=== PATIENT | female | born 2000 | race Caucasian/White ===

== ENCOUNTER 2021-05-18 09:13 | Emergency (ER) | payer OTHER ==
[~2021-05-18] VITALS: Ht 157.5 cm; Wt 93.2 kg
[2021-05-18 09:28] VITALS: BP 136/87
[2021-05-18] MEDS ORDERED: diphenhydrAMINE 50 MG/ML VIAL IVP ONE (09:30)
[2021-05-18] MEDS ORDERED: METOCLOPRAMIDE HCL 10 MG/2 ML VIAL. IVP ONE (09:30)
[2021-05-18] MEDS ORDERED: KETOROLAC 30 MG/ML VIAL. IVP ONE (09:30)
[2021-05-18] MEDS ORDERED: IV NORMAL SALINE 1,000ML 1,000 ML IV ONE (09:30)
--- NOTE | 2021-05-18 09:59 | PHYS DOC ---
Past History Alcohol Use: None General Adult EDM: Chief Complaint: SYNCOPE HPI: HPI: 21-year-old female presents with near syncopal episode while she was at work. She developed a headache last night around 10:30 PM. It is a stabbing pain in the occipital region that radiates to behind her eyes. She went to sleep last night thinking the headache would go away. When she woke up today she still had the same headache. She was at work and she started to see stars. She thinks she just fell asleep at her desk. She did not fall out of her chair. She did not fall onto the floor. Her boss saw that she was partially unconscious and was very concerned she should get checked out. Patient denies fever or chills. She does not have a history of headaches. She denies any falls or trauma. Review of Systems: Review of Systems: Constitutional: Denies fever or chills Eyes: Denies change in visual acuity HENT: Denies nasal congestion or sore throat Respiratory: Denies cough or shortness of breath Cardiovascular: Denies chest pain or edema GI: Denies abdominal pain, nausea, vomiting, bloody stools or diarrhea : Denies dysuria Musculoskeletal: Denies back pain or joint pain Integument: Denies rash Neurologic: Near syncope. Denies headache, focal weakness or sensory changes Endocrine: Denies polyuria or polydipsia Lymphatic: Denies swollen glands Psychiatric: Denies depression or anxiety Current Medications: Current Meds: Current Medications Medications (Trade) Dose Ordered Sig/Sully Start Time Stop Time Status Last Admin Dose Admin Diphenhydramine HCl (Benadryl) 25 mg 1X ONCE 05/18/21 09:30 05/18/21 09:32 DC 05/18/21 09:45 25 MG Ketorolac Tromethamine (Toradol 30mg Vial) 30 mg 1X ONCE 05/18/21 09:30 05/18/21 09:32 DC 05/18/21 09:45 30 MG Metoclopramide HCl (Reglan Vial) 10 mg 1X ONCE 05/18/21 09:30 05/18/21 09:32 DC 05/18/21 09:45 10 MG Sodium Chloride 1,000 ml @ 1,000 mls/hr 1X ONCE 05/18/21 09:30 05/18/21 10:29 05/18/21 09:39 1,000 MLS/HR Allergies: Allergies: Allergies Coded Allergies Type Severity Reaction Last Updated Verified No Known Drug Allergies 05/18/21 No Physical Exam: PE: Constitutional: Well developed, well nourished, no acute distress, non-toxic appearance. [] HENT: Normocephalic, atraumatic, bilateral external ears normal, oropharynx moist, no oral exudates, nose normal. [] Eyes: PERRLA, EOMI, conjunctiva normal, no discharge. [] Neck: Normal range of motion, no tenderness, supple, no stridor. [] Cardiovascular: Heart rate regular rhythm, no murmur [] Lungs & Thorax: Bilateral breath sounds clear to auscultation [] Abdomen: Bowel sounds normal, soft, no tenderness, no masses, no pulsatile masses. [] Skin: Warm, dry, no erythema, no rash. [] Back: No tenderness, no CVA tenderness. [] Extremities: No tenderness, no cyanosis, no clubbing, ROM intact, no edema. [] Neurologic: Alert and oriented X 3, normal motor function, normal sensory function, no focal deficits noted. [] Psychologic: Affect normal, judgement normal, mood normal. [] Current Patient Data: Labs: Laboratory Tests Test 05/18/21 09:52 POC Urine HCG, Qualitative hcg negative (Negative) EKG: EKG: [] Radiology/Procedures: Radiology/Procedures: [] Heart Score: C/O Chest Pain: N/A Risk Factors: Risk Factors: DM, Current or recent (<one month) smoker, HTN, HLP, family history of CAD, obesity. Risk Scores: Score 0 - 3: 2.5% MACE over next 6 weeks - Discharge Home Score 4 - 6: 20.3% MACE over next 6 weeks - Admit for Clinical Observation Score 7 - 10: 72.7% MACE over next 6 weeks - Early Invasive Strategies Course & Med Decision Making: Course & Med Decision Making Pertinent Labs and Imaging studies reviewed. (See chart for details) The patient's labs are unremarkable. Her urinalysis is negative for infection. She is not . For her headache I have given her 1 L normal saline, 25 mg of Benadryl, 10 mg Reglan, 30 mg of Toradol. The patient's headache was partially improved so on an abundance of caution I ordered a head CT since the patient does not have a history of headaches. His CT is negative for acute findings. I have added 4 mg of Decadron IV. Patient should continue to improve after going home. She is stable for discharge at this time. [] Dragon Disclaimer: Dragon Disclaimer: This electronic medical record was generated, in whole or in part, using a voice recognition dictation system. Departure Departure: Impression: Primary Impression: Headache Qualified Codes: R51.9 - Headache, unspecified Additional Impression: Near syncope Disposition: HOME / SELF CARE / HOMELESS Condition: STABLE Referrals: PCP,NO (PCP) Patient Instructions: General Headache Without Cause, [id number], Near-Sy ncope, [id number] ITZEL VELIZ DO May 18, 2021 09:59
[2021-05-18 10:01] LABS: BASO # 0.1 x10^3/uL (0.0-0.2); BASO % 1 % (0-3); EOS # 0.6 x10^3/uL (0.0-0.7); EOS % 6 % (0-3); HEMATOCRIT 39.6 % (36.0-47.0); HEMOGLOBIN 13.4 g/dL (12.0-15.5); LYMPH % 28 % (24-48); MEAN CORPUSCULAR HEMOGLOBIN 30 pg (25-35); MEAN CORPUSCULAR HGB CONC 34 g/dL (31-37); MEAN CORPUSCULAR VOLUME 88 fL (79-100); MONO # 0.8 x10^3/uL (0.0-1.1); MONO % 7 % (0-9); NEUT # 6.4 x10^3uL (1.8-7.7); NEUT % 59 % (31-73); PLATELET COUNT 304 x10^3/uL (140-400); RED BLOOD COUNT 4.52 x10^6/uL (3.50-5.40); RED CELL DISTRIBUTION WIDTH 12.7 % (11.5-14.5); WHITE BLOOD COUNT 10.8 x10^3/uL (4.0-11.0)
[2021-05-18 10:09] LABS: CALCIUM 8.8 mg/dL (8.5-10.1); CREATININE 0.8 mg/dL (0.6-1.0); GFR 91.4; POTASSIUM 3.7 mmol/L (3.5-5.1)
[2021-05-18 10:14] LABS: BARBITURATES NEG (NEG); BENZODIAZEPINES NEG (NEG); CANNABINOIDS NEG (NEG); COCAINE NEG (NEG); METHADONE NEG (NEG); OPIATES NEG (NEG); PHENCYCLIDINE NEG (NEG)
[2021-05-18 10:16] LABS: ALBUMIN 3.8 g/dL (3.4-5.0); ALBUMIN/GLOBULIN RATIO 1.2 (1.0-1.7); TOTAL BILIRUBIN 0.3 mg/dL (0.2-1.0); TOTAL PROTEIN 7.1 g/dL (6.4-8.2)
[2021-05-18 10:18] LABS: AMPHETAMINE/METHAMPHETAMINE NEG (NEG)
[2021-05-18 10:30] LABS: COLOR,URINE YELLOW
[2021-05-18 10:31] LABS: BACTERIA,URINE FEW /HPF (0-FEW); BILIRUBIN,URINE NEG (NEG); CLARITY,URINE HAZY; GLUCOSE,URINE NEG (NEG); NITRITE,URINE NEG (NEG); RBC,URINE 0 /HPF (0-2); SQUAMOUS EPITHELIAL CELL,UR MANY /LPF; UROBILINOGEN,URINE 0.2 mg/dL (0.2 mg/dL); WBC,URINE OCC /HPF (0-4)
[2021-05-18] MEDS ORDERED: DEXAMETHASONE SOD PHOS 4 MG/ML VIAL. IVP ONE (11:45)
--- NOTE | 2021-05-18 11:55 | RAD ---
EXAM: Head CT without contrast. HISTORY: Headache. TECHNIQUE: Computed tomographic images of the head were obtained without contrast. *One or more of the following individualized dose reduction techniques were utilized for this examina tion: 1. Automated exposure control. 2. Adjustment of the mA and/or kV according to patient size. 3. Use of iterative reconstruction technique. COMPARISON: None. FINDINGS: There is no acute or subacute extra-axial or intraparenchymal hemorrhage. There is no mass effect or midline shift. There is no hydrocephalus. The green-white matter differentiation pattern is intact. The visualized portions of the orbits, paranasal sinuses and mastoid air cells are unremarkable. No s uspicious calvarial lesion is seen. IMPRESSION: No acute intracranial findings. Electronically signed by: Swathi Chanel MD (05/18/2021 11:53 AM) [id number]
== END 2021-05-18 12:12 | disposition home or self-care (01) ==
LOC: ER 09:13
DX: R55 Syncope and collapse (principal); R51.9 Headache, unspecified
CPT/HCPCS: 36415; 70450; 80053; 80307; 81001; 81025; 85025; 96361; 96374; 96375; 99284; J1100; J1200; J1885; J2765; J7030

== ENCOUNTER 2021-05-20 12:27 | Emergency (ER) | payer OTHER ==
[~2021-05-20] VITALS: Ht 157.5 cm; Wt 93.2 kg
[2021-05-20] MEDS ORDERED: PROCHLORPERAZINE 10 MG/2 ML VIAL. IV ONE (12:45)
[2021-05-20] MEDS ORDERED: diphenhydrAMINE 50 MG/ML VIAL IVP ONE (12:45)
[2021-05-20] MEDS ORDERED: KETOROLAC 15 MG/ML VIAL. IVP ONE (12:45)
[2021-05-20] MEDS ORDERED: IV NORMAL SALINE 1,000ML 1,000 ML IV ONE (12:45)
--- NOTE | 2021-05-20 12:49 | PHYS DOC ---
Past History Past Surgical History: Other Additional Past Surgical Histo: wisdom teeth Alcohol Use: None General Adult EDM: Chief Complaint: MULTIPLE COMPLAINTS HPI: HPI: Patient is a 21-year-old female who presents to the ER today for migraine and lower abdominal pain. Patient reports that she started experiencing a headache in the back of her head today. She rates it 7 out of 10. No radiation of pain. Patient took ibuprofen prior to arrival. Patient has a history of migraines. She does not take any medications at home. No thunderclap headache. No sick exposures. Patient is also reporting photophobia. She denies fever, nausea, vomiting, diarrhea. Last bowel movement yesterday. Last menstrual period. 2 weeks ago. Review of Systems: Review of Systems: 14 body systems of the review of systems have been reviewed. See HPI for pertinent positive and negative responses, otherwise all other systems are negative, nonpertinent or noncontributory Allergies: Allergies: Allergies Coded Allergies Type Severity Reaction Last Updated Verified No Known Drug Allergies 05/18/21 No Physical Exam: PE: Constitutional: Well developed, well nourished, no acute distress, non-toxic appearance. [] HENT: Normocephalic, atraumatic, bilateral external ears normal, oropharynx moist, no oral exudates, nose normal. [] Eyes: PERRLA, EOMI, pupils 4 mm bilaterally, conjunctiva normal, no discharge. [] Neck: Normal range of motion, no stridor Cardiovascular:Heart rate regular rhythm, no murmur [] Lungs & Thorax: Bilateral breath sounds clear to auscultation [] Abdomen: Bowel sounds normal, soft, no masses, no pulsatile masses, bilateral lower abdominal tenderness with palpation. [] Skin: Warm, dry, no erythema, no rash. [] Back: No tenderness, normal range of motion Extremities: No tenderness, no cyanosis, no clubbing, ROM intact, no edema. [] Neurologic: Alert and oriented X 3, normal motor function, normal sensory function, no focal deficits noted. [] Psychologic: Affect normal, judgement normal, mood normal. [] Current Patient Data: Labs: Laboratory Tests Test 05/20/21 13:00 05/20/21 13:10 05/20/21 13:20 White Blood Count 9.1 x10^3/uL Red Blood Count 4.53 x10^6/uL Hemoglobin 13.4 g/dL Hematocrit 40.1 % Mean Corpuscular Volume 88 fL Mean Corpuscular Hemoglobin 30 pg Mean Corpuscular Hemoglobin Concent 33 g/dL Red Cell Distribution Width 13.3 % Platelet Count 288 x10^3/uL Neutrophils (%) (Auto) 51 % Lymphocytes (%) (Auto) 39 % Monocytes (%) (Auto) 6 % Eosinophils (%) (Auto) 4 % Basophils (%) (Auto) 1 % Neutrophils # (Auto) 4.6 x10^3uL Lymphocytes # (Auto) 3.6 x10^3/uL Monocytes # (Auto) 0.5 x10^3/uL Eosinophils # (Auto) 0.4 x10^3/uL Basophils # (Auto) 0.1 x10^3/uL Sodium Level 141 mmol/L Potassium Level 4.0 mmol/L Chloride Level 104 mmol/L Carbon Dioxide Level 30 mmol/L Anion Gap 7 Blood Urea Nitrogen 11 mg/dL Creatinine 0.7 mg/dL Estimated GFR (Cockcroft-Gault) 106.7 BUN/Creatinine Ratio 16 Glucose Level 81 mg/dL Calcium Level 8.5 mg/dL Total Bilirubin 0.3 mg/dL Aspartate Amino Transf (AST/SGOT) 15 U/L Alanine Aminotransferase (ALT/SGPT) 18 U/L Alkaline Phosphatase 66 U/L Total Protein 6.8 g/dL Albumin 3.5 g/dL Albumin/Globulin Ratio 1.1 Lipase 93 U/L Urine Collection Type Void Urine Color Straw Urine Clarity Clear Urine pH 7.0 Urine Specific Rembrandt 1.020 Urine Protein Neg Urine Glucose (UA) Neg mg/dL Urine Ketones (Stick) Neg mg/dL Urine Blood Neg Urine Nitrite Neg Urine Bilirubin Neg Urine Urobilinogen Dipstick 0.2 mg/dL Urine Leukocyte Esterase Neg Urine RBC 0 /HPF Urine WBC Rare /HPF Urine Squamous Epithelial Cells Mod /LPF Urine Bacteria 0 /HPF Bedside Urine HCG, Qualitative hcg negative Current Medications Medications (Trade) Dose Ordered Sig/Sully Route PRN Reason Start Time Stop Time Status Last Admin Dose Admin Sodium Chloride 1,000 ml @ 1,000 mls/hr 1X ONCE IV 05/20/21 12:45 05/20/21 13:44 DC 05/20/21 12:58 Prochlorperazine Edisylate (Compazine) 10 mg 1X ONCE IV 05/20/21 12:45 05/20/21 12:57 DC 05/20/21 12:59 Diphenhydramine HCl (Benadryl) 25 mg 1X ONCE IVP 05/20/21 12:45 05/20/21 12:57 DC 05/20/21 13:03 Ketorolac Tromethamine (Toradol 15mg Vial) 15 mg 1X ONCE IVP 05/20/21 12:45 05/20/21 12:57 DC 05/20/21 13:02 Iohexol (Omnipaque 300 Mg/ml) 75 ml 1X ONCE IV 05/20/21 13:00 05/20/21 13:01 DC 05/20/21 13:15 Info (Do NOT chart on this entry -- for MONITORING) 1 each PRN DAILY PRN MC SEE COMMENTS 05/20/21 13:00 05/22/21 12:59 Vital Signs: Vital Signs Date Time Temp Pulse Resp B/P (MAP) Pulse Ox O2 Delivery O2 Flow Rate FiO2 05/20/21 12:34 97.9 90 18 118/79 98 Room Air EKG: EKG: [] Radiology/Procedures: Radiology/Procedures: PROCEDURE: CT ABD PELV W/ IV CONTRST ONLY CT ABDOMEN+PELVIS W History: Lower abdominal pain. Comparison: None. Technique: CT abdomen and pelvis with intravenous contrast. Findings: The lung bases are clear. Normal liver, gallbladder, pancreas, spleen, adrenal glands, and kidneys. The stomach, small bowel and appendix are within normal limits. The colon demonstrates no wall thickening or pericolonic inflammatory changes. There is a moderate colonic stool burden. Uterus is unremarkable. There is a cystic lesion of the right ovary measuring approximately 2.4 cm diameter. The left adnexa is unremarkable. No significant pelvic free fluid. No abdominopelvic adenopathy. Normal vasculature. Soft tissues and osseous structures are within normal limits. Impression: 1. No acute findings in the abdomen and pelvis. 2. Cystic lesion of the right ovary measuring 2.4 cm. Follow-up is not required however this may represent etiology for lower abdominal/pelvic pain. ------ Exposure: One or more of the following individualized dose reduction techniques were utilized for this examination: 1. Automated exposure control 2. Adjustment of the mA and/or kV according to patient size 3. Use of iterative reconstruction technique. Electronically signed by: Turner Sanchez MD (05/20/2021 1:50 PM) [id number] DICTATED AND SIGNED BY: TURNER SANCHEZ MD DATE: 05/20/21 0711 CC: BRITTNEY OSWALD APRN; PCP,NO ~MTH0 0 [] Heart Score: C/O Chest Pain: No Risk Factors: Risk Factors: DM, Current or recent (<one month) smoker, HTN, HLP, family history of CAD, obesity. Risk Scores: Score 0 - 3: 2.5% MACE over next 6 weeks - Discharge Home Score 4 - 6: 20.3% MACE over next 6 weeks - Admit for Clinical Observation Score 7 - 10: 72.7% MACE over next 6 weeks - Early Invasive Strategies Course & Med Decision Making: Course & Med Decision Making Pertinent Labs and Imaging studies reviewed. (See chart for details) Patient is a 21-year-old female being seen in the ER for lower abdominal pain and migraine. Patient has a history of migraine headaches. This is not her worst headache of her life. No thunderclap headache. No meningeal signs. Patient had blood work, UA, CT scan of abdomen performed in the ER. Work-up was unremarkable in the ER. Cyst was found on her right ovary on the CT scan of her abdomen. She is to follow-up with her primary care provider. She was treated in the ER with migraine cocktail and fluids. Upon reevaluation, patient reports improvement in her symptoms and no longer has a headache. She is resting comfortably on the ER cot. I discussed with patient all findings and diagnostic testing as well as the need to follow-up with PCP for further evaluation and treatment or return to the ER if any new or worsening symptoms. Strict return precautions were also discussed at length. Patient voiced understanding and agreement with the plan. Patient is hemodynamically stable at the time of disposition. Dragon Disclaimer: Dragon Disclaimer: This electronic medical record was generated, in whole or in part, using a voice recognition dictation system. Departure Departure: Impression: Primary Impression: Migraine Disposition: HOME / SELF CARE / HOMELESS Condition: GOOD Referrals: PCP,NO (PCP) Patient Instructions: Migraine Headache Additional Instructions: You were seen in the ER today for lower abdominal pain and migraine headache. Your blood work was unremarkable. The CT scan of your abdomen showed cyst on your right ovary which may be the cause of your lower abdominal pain. You need to follow-up with your primary care provider regarding this finding. You were treated in the ER with our migraine cocktail. You reported improvement in your pain. You can continue to take Tylenol/ibuprofen for your head pain. Follow-up with your primary care provider as you may need a neurology referral and you may need to be put on a migraine medication. Increase your fluids and rest. Oftent imes resting in a dark quiet area may help with headache symptoms. If you develop worsening of your headache, blurred vision, lightheadedness, syncope, uncontrollable nausea or vomiting, the worst headache of your life, unilateral weakness please return to the ER immediately. EMERGENCY DEPARTMENT GENERAL DISCHARGE INSTRUCTIONS Thank you for coming to [facility] (ED) today and trusting us with you care. We trust that you had a positivie experience in our Emergency Department. If you wish to speak to the department management, you may call the director at [phone]. YOUR FOLLOW UP INSTRUCTIONS ARE FOLLOWS: 1. Do you have a private Doctor? If you do not have a private doctor, please ask for a resource list of physicians or clinics that may be able to assist you with follow up care. 2. The Emergency Physician has interpreted your x-rays. The X-Ray specialist will also review them. If there is a change in the findings, you will be notified in 48 hours when at all possible. 3. A lab test or culture has been done, your results will be reviewed and you will be notified if you need a change in treatment. ADDITIONAL INSTRUCTIONS AND INFORMATION: 1. Your care today has been supervised by a physician who is specially trained in emergency care. Many problems require more than one evaluation for a complete diagnosis and treatment. We recommend that you schedule your follow up appointment as recommended to ensure complete treatment of you illness or injury. If you are unable to obtain follow up care and continue to have a problem, or if your condition worsens, we recommend that you return to the ED. 2. We are not able to safely determine your condition over the phone nor are we able to give sound medical advice over the phone. For these safety reasons, if you call for medical advice we will ask you to come to the ED for further evaluation. 3. If you have any questions regarding these discharge instructions please call the ED at [phone]. SAFETY INFORMATION: In the interest of safety, wellness, and injury prevention; we encourage you to wear your sealbelt, if you smoke; quite smoking, and we encourage family to use a protective helmet for bicycling and other sporting events that present an increased risk for head injury. IF YOUR SYMPTOMS WORSEN OR NEW SYMPTOMS DEVELOP, OR YOU HAVE CONCERNS ABOUT YOUR CONDITION; OR IF YOUR CONDITION WORSENS WHILE YOU ARE WAITING FOR YOUR FOLLOW UP APPOINTMENT; EITHER CONTACT YOUR PRIMARY CARE DOCTOR, THE PHYSICIAN WHOSE NAME AND NUMBER YOU WERE GIVEN, OR RETURN TO THE ED IMMEDIATELY. BRITTNEY OSWALD AGRICULTURAL PRODUCTION ENGINEER May 20, 2021 12:49
[2021-05-20] MEDS ORDERED: CONTRAST GIVEN. MC PRN (13:00)
[2021-05-20] MEDS ORDERED: IOHEXOL 300 MG/ML 75 ML VIAL. IV ONE (13:00)
[2021-05-20 13:28] LABS: BASO # 0.1 x10^3/uL (0.0-0.2); BASO % 1 % (0-3); EOS # 0.4 x10^3/uL (0.0-0.7); EOS % 4 % (0-3); HEMATOCRIT 40.1 % (36.0-47.0); HEMOGLOBIN 13.4 g/dL (12.0-15.5); LYMPH # 3.6 x10^3/uL (1.0-4.8); LYMPH % 39 % (24-48); MEAN CORPUSCULAR HEMOGLOBIN 30 pg (25-35); MEAN CORPUSCULAR HGB CONC 33 g/dL (31-37); MEAN CORPUSCULAR VOLUME 88 fL (79-100); MONO # 0.5 x10^3/uL (0.0-1.1); MONO % 6 % (0-9); NEUT # 4.6 x10^3uL (1.8-7.7); NEUT % 51 % (31-73); PLATELET COUNT 288 x10^3/uL (140-400); RED BLOOD COUNT 4.53 x10^6/uL (3.50-5.40); RED CELL DISTRIBUTION WIDTH 13.3 % (11.5-14.5); WHITE BLOOD COUNT 9.1 x10^3/uL (4.0-11.0)
[2021-05-20 13:32] LABS: CALCIUM 8.5 mg/dL (8.5-10.1); CREATININE 0.7 mg/dL (0.6-1.0); GFR 106.7
[2021-05-20 13:39] LABS: ALBUMIN 3.5 g/dL (3.4-5.0); ALBUMIN/GLOBULIN RATIO 1.1 (1.0-1.7); TOTAL BILIRUBIN 0.3 mg/dL (0.2-1.0); TOTAL PROTEIN 6.8 g/dL (6.4-8.2)
[2021-05-20 13:40] LABS: BILIRUBIN,URINE NEG (NEG); CLARITY,URINE CLEAR; COLOR,URINE STRAW; GLUCOSE,URINE NEG (NEG)
[2021-05-20 13:41] LABS: NITRITE,URINE NEG (NEG); UROBILINOGEN,URINE 0.2 mg/dL (0.2 mg/dL)
[2021-05-20 13:42] LABS: BACTERIA,URINE 0 /HPF (0-FEW); RBC,URINE 0 /HPF (0-2); SQUAMOUS EPITHELIAL CELL,UR MOD /LPF; WBC,URINE RARE /HPF (0-4)
--- NOTE | 2021-05-20 13:52 | RAD ---
CT ABDOMEN+PELVIS W History: Lower abdominal pain. Comparison: None. Technique: CT abdomen and pelvis with intravenous contrast. Findings: The lung bases are clear. Normal liver, gallbladder, pancreas, spleen, adrenal glands, and kidneys. The stomach, small bowel and appendix are within normal limits. The colon demonstrates no wall thicke jenny or pericolonic inflammatory changes. There is a moderate colonic stool burden. Uterus is unremarkable. There is a cystic lesion of the right ovary measuring approximately 2.4 cm di ameter. The left adnexa is unremarkable. No significant pelvic free fluid. No abdominopelvic adenopat hy. Normal vasculature. Soft tissues and osseous structures are within normal limits. Impression: 1. No acute findings in the abdomen and pelvis. 2. Cystic lesion of the right ovary measuring 2.4 cm. Follow-up is not required however this may rep resent etiology for lower abdominal/pelvic pain. ------ Exposure: One or more of the following individualized dose reduction techniques were utilized for thi s examination: 1. Automated exposure control 2. Adjustment of the mA and/or kV according to patient size 3. Use of iterative reconstruction technique. Electronically signed by: Turner Sanchez MD (05/20/2021 1:50 PM) [id number]
[2021-05-20 14:10] VITALS: BP 131/57
== END 2021-05-20 14:15 | disposition home or self-care (01) ==
LOC: ER 12:27
DX: G43.909 Migraine, unspecified, not intractable, without status migrainosus (principal)
CPT/HCPCS: 36415; 74177; 80053; 81001; 81025; 83690; 85025; 96361; 96374; 96375; 99285; J0780; J1200; J1885; J7030; Q9967

== ENCOUNTER 2021-09-02 17:39 | Emergency (ER) | payer OTHER ==
[~2021-09-02] VITALS: Ht 157.5 cm; Wt 94.0 kg
[2021-09-02] MEDS ORDERED: IV RINGERS SOLUTION,LACTATED 1,000 ML IV SCH (18:30)
[2021-09-02] MEDS ORDERED: FAMOTIDINE 20 MG/2 ML VIAL IVP ONE (18:30)
[2021-09-02] MEDS ORDERED: oxyCODONE/APAP 5/325 1 TAB TABLET PO ONE (18:30)
[2021-09-02 18:31] LABS: BASO # 0.1 x10^3/uL (0.0-0.2); BASO % 1 % (0-3); EOS # 0.3 x10^3/uL (0.0-0.7); EOS % 3 % (0-3); HEMATOCRIT 37.6 % (36.0-47.0); HEMOGLOBIN 12.8 g/dL (12.0-15.5); LYMPH # 2.4 x10^3/uL (1.0-4.8); LYMPH % 25 % (24-48); MEAN CORPUSCULAR HEMOGLOBIN 29 pg (25-35); MEAN CORPUSCULAR HGB CONC 34 g/dL (31-37); MEAN CORPUSCULAR VOLUME 86 fL (79-100); MONO # 1.1 x10^3/uL (0.0-1.1); MONO % 11 % (0-9); NEUT # 5.8 x10^3uL (1.8-7.7); NEUT % 60 % (31-73); PLATELET COUNT 283 x10^3/uL (140-400); RED BLOOD COUNT 4.37 x10^6/uL (3.50-5.40); RED CELL DISTRIBUTION WIDTH 13.3 % (11.5-14.5); WHITE BLOOD COUNT 9.6 x10^3/uL (4.0-11.0)
--- NOTE | 2021-09-02 18:40 | PHYS DOC ---
Past History Past Surgical History: Appendectomy, Other Additional Past Surgical Histo: wisdom teeth Alcohol Use: None General Adult EDM: Chief Complaint: VAGINAL BLEEDING HPI: HPI: ".. I am bleeding and I think I may be having a miscarry.. I think I am less than `10 weeks. I could not get into the [place] for a followup [facility].. " Patient is a 21 year old female who presents with above hx and complaints of cramping and bleeding. Pt. less than 10 weeks gravid. Pt. had Positive Urine and HCG previously. Pt. has not had a ultrasound as yet here. No recent travel. No history of trauma. No specific ill contacts. No history immunosuppression. Patient first . No history of trauma. No history of STDs. 1 lifetime sexual partner. Review of Systems: Review of Systems: Constitutional: Denies fever or chills Eyes: Denies change in visual acuity HENT: Denies nasal congestion or sore throat Respiratory: Denies cough or shortness of breath Cardiovascular: Denies chest pain or edema GI: Complains of abdomen cramping,, nausea, vomiting,. Denies bloody stools or diarrhea. Patient has had vaginal vault bleeding : Denies dysuria Musculoskeletal: Denies back pain or joint pain Integument: Denies rash Neurologic: Denies headache, focal weakness or sensory changes Endocrine: Denies polyuria or polydipsia Lymphatic: Denies swollen glands Psychiatric: Denies depression or anxiety Family History: Family History: Noncontributory to presentation Current Medications: Current Meds: Current Medications Medications (Trade) Dose Ordered Sig/Sully Start Time Stop Time Status Last Admin Dose Admin Famotidine (Pepcid Vial) 20 mg 1X ONCE 09/02/21 18:30 09/02/21 18:32 DC Lactated Ringer's 1,000 ml @ 1,000 mls/hr Q1H 09/02/21 18:30 09/02/21 19:29 Oxycodone/ Acetaminophen (Percocet 5/325) 2 tab 1X ONCE 09/02/21 18:30 09/02/21 18:32 DC Allergies: Allergies: Allergies Coded Allergies Type Severity Reaction Last Updated Verified No Known Drug Allergies 05/20/21 No Physical Exam: PE: Constitutional: Well developed, well nourished, in acute emotional distress distress, non-toxic appearance. [] HENT: Normocephalic, atraumatic, bilateral external ears normal, oropharynx moist, no oral exudates, nose normal. [] Eyes: PERRLA, EOMI, conjunctiva normal, no discharge. [] Neck: Normal range of motion, no tenderness, supple, no stridor. [] Cardiovascular:Heart rate regular rhythm, no murmur [] Lungs & Thorax: Bilateral breath sounds clear to auscultation [] Abdomen: Bowel sounds normal, soft, no tenderness, no masses, no pulsatile masses. [] Does have active bleeding from os. Os is closed. No cervical motion tenderness. Rectal exam hard stool in vault. No significant rebound pain. No adnexal tenderness. Skin: Warm, dry, no erythema, no rash. [] Back: No tenderness, no CVA tenderness. [] Extremities: No tenderness, no cyanosis, no clubbing, ROM intact, no edema. [] Neurologic: Alert and oriented X 3, normal motor function, normal sensory function, no focal deficits noted. [] Psychologic: Affect extremely anxious tearful, judgement normal, mood normal. [] Current Patient Data: Labs: Laboratory Tests Test 09/02/21 18:01 POC Urine HCG, Qualitative hcg positive (Negative) Vital Signs: Vital Signs Date Time Temp Pulse Resp B/P (MAP) Pulse Ox O2 Delivery O2 Flow Rate FiO2 09/02/21 17:47 98.8 102 22 110/66 (81) 99 EKG: EKG: [] Radiology/Procedures: Radiology/Procedures: [][place] [address] IMAGING REPORT Signed PATIENT: AMANDA JACKSON ACCOUNT: [id number] : 2000 LOCATION: ER AGE: 21 SEX: F EXAM STATUS: REG ER ORD. PHYSICIAN: HAYLEE OBRIEN MD REASON: vag. bleed, less 10 weeks gravid PROCEDURE: OB <14 WKS W/TV Transvaginal obstetric ultrasound less than 14 weeks HISTORY: female with vaginal bleeding, less than 10 weeks . TECHNIQUE: Transvaginal transducer with grayscale and duplex upper sonography was utilized. FINDINGS: Anteverted uterus measures 6.4 x 3.9 x 2.8 cm. No intrauterine gestational sac documented. Fundal endometrial thickness 0.5 cm. Cervix is normal. No uterine masses. Right ovary measures 3.2 x 3.2 x 2.2 cm with a few subcentimeter follicles. Left ovary measures 2.5 x 2.5 x 1.3 cm with a few subcentimeter ovarian follicles. There is intact bilateral right blood flow. There are no adnexal masses. No pelvic free fluid. IMPRESSION: Normal pelvic ultrasound. No intrauterine gestation is evident sonographically. Correlate with the quantitative hCG, these findings can be normal in the setting of a very early first trimester if the quantitative hCG is less than 2000 mIU/mL. In the setting of a greater quantity hCG, these findings may be sequela of delayed sonographic development of an intrauterine gestation, sequela of recent spontaneous , or sonographically occult ectopic. Clinical and sonographic follow-up in one week is advised. Electronically signed by: Pili Finnegan MD (09/02/2021 8:09 PM) [facility] [place] DICTATED AND SIGNED BY: PILI FINNEGAN MD DATE: 09/02/212005 CC: KERRY JEROME; HAYLEE OBRIEN MD ~MTH0 0 Heart Score: C/O Chest Pain: N/A Risk Factors: Risk Factors: DM, Current or recent (<one month) smoker, HTN, HLP, family history of CAD, obesity. Risk Scores: Score 0 - 3: 2.5% MACE over next 6 weeks - Discharge Home Score 4 - 6: 20.3% MACE over next 6 weeks - Admit for Clinical Observation Score 7 - 10: 72.7% MACE over next 6 weeks - Early Invasive Strategies Course & Med Decision Making: Course & Med Decision Making Pertinent Labs and Imaging studies reviewed. (See chart for details) Continue pad counts. Continue vitamins. Repeat beta-hCG in 3 days. Follow-up primary care. May have further bleeding. Review ED record with primary care and OB. Take ultrasound with you on follow-up with OB or primary. Follow-up pending cultures. Impression: 1. Threaten 2. No identifiable intrauterine by ultrasound-(concern for ectopic) 3. B-HCG 342, 4. Hemoglobin 12.8 5. Pt. maternal blood type B+ positive [] Dragon Disclaimer: Dragon Disclaimer: This electronic medical record was generated, in whole or in part, using a voice recognition dictation system. Departure Departure: Referrals: KERRY JEROME (PCP) Larry Disclaimer This chart was dictated in whole or in part using Voice Recognition software in a busy, high-work load, and often noisy Emergency Department environment. It may contain unintended and wholly unrecognized errors or omissions. Dragon Disclaimer This chart was dictated in whole or in part using Voice Recognition software in a busy, high-work load, and often noisy Emergency Department environment. It may contain unintended and wholly unrecognized errors or omissions. HAYLEE OBRIEN MD Sep 02, 2021 18:40
[2021-09-02 18:49] LABS: CALCIUM 9.4 mg/dL (8.5-10.1); CREATININE 0.7 mg/dL (0.6-1.0); GFR 106.7; POTASSIUM 3.8 mmol/L (3.5-5.1)
[2021-09-02 18:51] LABS: BARBITURATES NEG (NEG); BENZODIAZEPINES NEG (NEG); CANNABINOIDS NEG (NEG); COCAINE NEG (NEG); METHADONE NEG (NEG); OPIATES NEG (NEG); PHENCYCLIDINE NEG (NEG)
[2021-09-02 18:55] LABS: AMPHETAMINE/METHAMPHETAMINE NEG (NEG); DIRECT BILIRUBIN 0.1 mg/dL (0.0-0.2); TOTAL BILIRUBIN 0.3 mg/dL (0.2-1.0); TOTAL PROTEIN 7.7 g/dL (6.4-8.2)
[2021-09-02 18:56] LABS: BACTERIA,URINE 0 /HPF (0-FEW); BILIRUBIN,URINE MOD (NEG); CLARITY,URINE CLOUDY; COLOR,URINE YELLOW; GLUCOSE,URINE NEG (NEG); NITRITE,URINE NEG (NEG); RBC,URINE 20-40 /HPF (0-2); SQUAMOUS EPITHELIAL CELL,UR MANY /LPF; WBC,URINE 0 /HPF (0-4)
--- NOTE | 2021-09-02 20:12 | RAD ---
Transvaginal obstetric ultrasound less than 14 weeks HISTORY: female with vaginal bleeding, less than 10 weeks . TECHNIQUE: Transvaginal transducer with grayscale and duplex upper sonography was utilized. FINDINGS: Anteverted uterus measures 6.4 x 3.9 x 2.8 cm. No intrauterine gestational sac documented. Fundal endometrial thickness 0.5 cm. Cervix is normal. No uterine masses. Right ovary measures 3.2 x 3.2 x 2.2 cm with a few subcentimeter follicles. Left ovary measures 2.5 x 2.5 x 1.3 cm with a few wilkins bcentimeter ovarian follicles. There is intact bilateral right blood flow. There are no adnexal alvino s. No pelvic free fluid. IMPRESSION: Normal pelvic ultrasound. No intrauterine gestation is evident sonographically. Correlate with the quantitative hCG, these findings can be normal in the setting of a very early first trimest er if the quantitative hCG is less than 2000 mIU/mL. In the setting of a greater quantity h CG, these findings may be sequela of delayed sonographic development of an intrauterine gestation, se quela of recent spontaneous , or sonographically occult ectopic. Clinical and sonographic fol low-up in one week is advised. Electronically signed by: Tyler Finnegan MD (09/02/2021 8:09 PM) [facility]
[2021-09-02 21:00] VITALS: BP 138/67
[2021-09-05 23:07] LABS: CHLAMYDIA PROBE Negative (Negative)
== END 2021-09-02 21:01 | disposition home or self-care (01) ==
LOC: ER 17:39
DX: O20.8 Other hemorrhage in early pregnancy (principal); Z3A.10 10 weeks gestation of pregnancy
CPT/HCPCS: 36415; 76801; 76817; 80048; 80076; 80307; 81001; 81025; 82550; 83690; 84702; 85025; 86850; 86900; 86901; 87491; 87591; 96360; 96361; 99284; J7120; Q0111

== ENCOUNTER 2021-09-23 18:35 | Emergency (ER) | payer OTHER ==
[~2021-09-23] VITALS: Ht 157.5 cm; Wt 94.0 kg
--- NOTE | 2021-09-23 19:07 | PHYS DOC ---
Past History Past Surgical History: Appendectomy, Other Additional Past Surgical Histo: wisdom teeth Alcohol Use: None General Adult HPI: HPI: ".. I still bleeding.. since .. Aug. I went through 4 pads today... I want to see my Ob at [facility] .. but they said there was nothing I could do... I had a miscarriage... Shortly after I was here in August.... This was my first . Patient is a 21year old female who presents with above hx and complaints continual vaginal bleeding since miscarriage in August. Patient normally follows at [facility]. Follows at [facility] for the . Miscarriage shortly after her visit in September 02. No recent travel. No history of STDs. No specific ill contacts. Has had continued bleeding. Had approximately 4 pads today. No history of coagulopathy. No history of travel. No history of immunosuppression. Normally follows at [facility]. Review of Systems: Review of Systems: Constitutional: Denies fever or chills Eyes: Denies change in visual acuity HENT: Denies nasal congestion or sore throat Respiratory: Denies cough or shortness of breath Cardiovascular: Denies chest pain or edema GI: Denies abdominal pain, nausea, vomiting, bloody stools or diarrhea : Denies dysuria Musculoskeletal: Denies back pain or joint pain Integument: Denies rash Neurologic: Denies headache, focal weakness or sensory changes Endocrine: Denies polyuria or polydipsia Lymphatic: Denies swollen glands Psychiatric: Denies depression or anxiety Allergies: Allergies: Allergies Coded Allergies Type Severity Reaction Last Updated Verified No Known Drug Allergies 05/20/21 No Physical Exam: PE: Constitutional: Well developed, well nourished, no acute distress, non-toxic appearance. [] HENT: Normocephalic, atraumatic, bilateral external ears normal, oropharynx moist, no oral exudates, nose normal. [] Eyes: PERRLA, EOMI, conjunctiva normal, no discharge. [] Neck: Normal range of motion, no tenderness, supple, no stridor. [] Cardiovascular:Heart rate regular rhythm, no murmur [] Lungs & Thorax: Bilateral breath sounds clear to auscultation [] Abdomen: Bowel sounds normal, soft, no tenderness, no masses, no pulsatile masses. [] Skin: Warm, dry, no erythema, no rash. [] Back: No tenderness, no CVA tenderness. [] Extremities: No tenderness, no cyanosis, no clubbing, ROM intact, no edema. [] Neurologic: Alert and oriented X 3, normal motor function, normal sensory function, no focal deficits noted. [] Psychologic: Affect normal, judgement normal, mood normal. [] EKG: EKG: [] Radiology/Procedures: Radiology/Procedures: [address] [address] IMAGING REPORT Signed PATIENT: AMANDA JACKSON ACCOUNT: [id number] : 2000 LOCATION: ER AGE: 21 SEX: F EXAM STATUS: REG ER ORD. PHYSICIAN: HAYLEE OBRIEN MD REASON: bleeding PROCEDURE: OB <14 WKS W/TV Study: US OB <14 WKS +TV DATE: 09/23/2021 9:15 PM INDICATION: Vaginal bleeding. COMPARISON: 09/02/2021 TECHNIQUE: Transvaginal ultrasonography of the pelvis was performed. Color Doppler and duplex were utilized as appropriate. FINDINGS: The uterus measures 6.1 x 3.7 x 2.6 cm. The right ovary measures 3.7 x 2.9 x 1.7 cm and the left ovary 2.8 x 2.2 x 1.4 cm. No intrauterine gestational sac. No fluid seen along the endometrial canal. Unremarkable uterine parenchyma. Normal Doppler flow to both ovaries. Several bilateral follicles. No complex cyst or mass at the adnexa. No free pelvic fluid. IMPRESSION: No intrauterine gestational sac or finding at either adnexa concerning for an ectopic. Correlation is needed with beta hCG to help determine if a gestational sac should be seen. Electronically signed by: ANNETTA ANN MD (09/23/2021 10:48 PM) [facility] DICTATED AND SIGNED BY: ANNETTA ANN MD DATE: 09/23/21 [id number] CC: KERRY JEROME; HAYLEE OBIREN MD ~MTH0 0 Heart Score: C/O Chest Pain: N/A Risk Factors: Risk Factors: DM, Current or recent (<one month) smoker, HTN, HLP, family history of CAD, obesity. Risk Scores: Score 0 - 3: 2.5% MACE over next 6 weeks - Discharge Home Score 4 - 6: 20.3% MACE over next 6 weeks - Admit for Clinical Observation Score 7 - 10: 72.7% MACE over next 6 weeks - Early Invasive Strategies Course & Med Decision Making: Course & Med Decision Making Pertinent Labs and Imaging studies reviewed. (See chart for details)C Continue pad counts. Continue vitamins. Recheck B-HCG in 3 days. Follow up with primary and OB Impression: 1. Threaten 2. B-HCG- 416 3 HGB= 12.6 5. Blood Type is B+positive . Dragon Disclaimer: Dragon Disclaimer: This electronic medical record was generated, in whole or in part, using a voice recognition dictation system. Departure Departure: Referrals: KERRY JEROME (PCP) Larry Disclaimer This chart was dictated in whole or in part using Voice Recognition software in a busy, high-work load, and often noisy Emergency Department environment. It may contain unintended and wholly unrecognized errors or omissions. HAYLEE OBRIEN MD Sep 23, 2021 19:07
[2021-09-23] MEDS ORDERED: IV RINGERS SOLUTION,LACTATED 1,000 ML IV ONE (19:30)
[2021-09-23 20:16] LABS: BILIRUBIN,URINE NEG (NEG); CLARITY,URINE HAZY; COLOR,URINE PINK; GLUCOSE,URINE NEG (NEG)
[2021-09-23 20:17] LABS: BACTERIA,URINE 0 /HPF (0-FEW); NITRITE,URINE NEG (NEG); RBC,URINE >40 /HPF (0-2); SQUAMOUS EPITHELIAL CELL,UR MOD /LPF; UROBILINOGEN,URINE 0.2 mg/dL (0.2 mg/dL); WBC,URINE 0 /HPF (0-4)
[2021-09-23 20:21] LABS: BASO # 0.1 x10^3/uL (0.0-0.2); BASO % 1 % (0-3); EOS # 0.5 x10^3/uL (0.0-0.7); EOS % 5 % (0-3); HEMATOCRIT 37.6 % (36.0-47.0); HEMOGLOBIN 12.6 g/dL (12.0-15.5); LYMPH # 3.4 x10^3/uL (1.0-4.8); LYMPH % 32 % (24-48); MEAN CORPUSCULAR HEMOGLOBIN 29 pg (25-35); MEAN CORPUSCULAR HGB CONC 34 g/dL (31-37); MEAN CORPUSCULAR VOLUME 87 fL (79-100); MONO # 0.9 x10^3/uL (0.0-1.1); MONO % 8 % (0-9); NEUT # 5.9 x10^3uL (1.8-7.7); NEUT % 55 % (31-73); PLATELET COUNT 312 x10^3/uL (140-400); RED BLOOD COUNT 4.34 x10^6/uL (3.50-5.40); RED CELL DISTRIBUTION WIDTH 13.4 % (11.5-14.5); WHITE BLOOD COUNT 10.8 x10^3/uL (4.0-11.0)
[2021-09-23 20:35] LABS: CREATININE 0.8 mg/dL (0.6-1.0); GFR 91.4; POTASSIUM 3.8 mmol/L (3.5-5.1)
[2021-09-23 20:53] VITALS: BP 133/81
--- NOTE | 2021-09-23 22:50 | RAD ---
Study: US OB <14 WKS +TV DATE: 09/23/2021 9:15 PM INDICATION: Vaginal bleeding. COMPARISON: 09/02/2021 TECHNIQUE: Transvaginal ultrasonography of the pelvis was performed. Color Doppler and duplex were ut ilized as appropriate. FINDINGS: The uterus measures 6.1 x 3.7 x 2.6 cm. The right ovary measures 3.7 x 2.9 x 1.7 cm and the left ovar y 2.8 x 2.2 x 1.4 cm. No intrauterine gestational sac. No fluid seen along the endometrial canal. Unremarkable uterine pare nchyma. Normal Doppler flow to both ovaries. Several bilateral follicles. No complex cyst or mass at the adne xa. No free pelvic fluid. IMPRESSION: No intrauterine gestational sac or finding at either adnexa concerning for an ectopic. Correlation is needed with beta hCG to help determine if a gestational sac should be seen. Electronically signed by: ANNETTA ANN MD (09/23/2021 10:48 PM) [facility]
== END 2021-09-23 23:41 | disposition home or self-care (01) ==
LOC: ER 18:35
DX: O20.0 Threatened abortion (principal); Z3A.01 Less than 8 weeks gestation of pregnancy
CPT/HCPCS: 36415; 76801; 76817; 80048; 81001; 81025; 84702; 85025; 96360; 99284; J7120